=== PATIENT | male | born 1950 ===

== ENCOUNTER 2020-02-05 07:07 | Day surgery (SDC) | payer MEDICARE, OTHER ==
[~2020-02-05] VITALS: Wt 86.9 kg
[2020-02-05 07:34] VITALS: BP 146/76; PULSE 92; TEMP 98.5
[2020-02-05] MEDS ORDERED: TRELEGY ELLIPT1 EACH IH (07:56)
[2020-02-05] MEDS ORDERED: VENTOLIN0.09 MG (07:57)
[2020-02-05] MEDS ORDERED: HCTZ 25MG TAB25 MG PO (07:57)
[2020-02-05] MEDS ORDERED: ASPIRIN E.C. 8181 MG PO (07:57)
[2020-02-05 09:30] VITALS: BP 115/78; PULSE 79
--- NOTE | 2020-02-05 09:30 | NUR ---
PATIENT TRANSPORTED PER CART TO BAY 2 ACCOMPANIED BY THIS NURSE. MONITORS REAPPLIED. O2 AT 89-92% ON 4 LITERS. PATIENT CONTINUES WITH COUGHING SPELLS. BUT DENIES SHORTNESS OF BREATH OR DISCOMFORT. AT BEDSIDE. PATIENT REQUESTS APPLE JUICE.
[2020-02-05 09:45] VITALS: BP 125/74; PULSE 85; TEMP 98
--- NOTE | 2020-02-05 09:45 | NUR ---
VSS ON O2 AT 4 LITERS. PATIENT TALKING WITH . DECREASING COUGHING SPELLS. TAKING APPLE JUICE WITHOUT PROBLEMS. PATIENT DENIES SHORTNESS OF BREATH.
[2020-02-05 10:00] VITALS: BP 119/79; PULSE 86
--- NOTE | 2020-02-05 10:00 | NUR ---
VSS ON O2 AT 4 LITERS. PATIENT EATS MUFFIN AND CONTINUES DRINKING APPLE JUICE WITHOUT PROBLEMS. TALKS WITH AT BEDSIDE. OCCASIONAL COUGHING. DENIES SHORTNESS OF BREATH OR DISCOMFORT. O2 DECREASED TO 3 LITERS.
--- NOTE | 2020-02-05 10:10 | NUR ---
O2 AT 3 LITERS SAO2 MAINTAINING ABOVE 90%. DR REGALADO CALLED AND UPATED ON PATIENT STATUS. NO NEW ORDERS RECEIVED. REVIEWED PATIENT INSTRUCTIONS WITH DOCTOR ON O2 USAGE AT HOME.
[2020-02-05 10:15] VITALS: BP 112/71; PULSE 79
--- NOTE | 2020-02-05 10:15 | NUR ---
VSS ON 3 LITERS PER N/C. PATIENT DENIES SHORTNESS OF BREATH AND DISCOMFORT. TALKS WITH . 1025 IV DC'D WITH CATHETER TIP INTACT. PRESSURE AND BANDAGE APPLIED. 1030 DISCHARGE INSTRUCTIONS GIVEN VERBAL AND DISCHARGE PACKET GIVEN TO . QUESTIONS ANSWERED AND PATIENT AND VOICED UNDERSTANDING. PATIENT CHANGES INTO STREET CLOTHES. 1045 PATIENT DISCHARGED PER WHEEL CHAIR ACCOMPANIED BY NURSE TO PRIVATE VECHILE. DRIVES VECHILE.
[2020-02-05 11:13] VITALS: BP 118/79; PULSE 84
== END 2020-02-05 11:46 ==
LOC: SDCO 07:07
DX: C34.31 Malignant neoplasm of lower lobe, right bronchus or lung (principal); J98.11 Atelectasis; Z79.82 Long term (current) use of aspirin; G47.30 Sleep apnea, unspecified; I10 Essential (primary) hypertension; J44.9 Chronic obstructive pulmonary disease, unspecified; G47.33 Obstructive sleep apnea (adult) (pediatric); Z99.81 Dependence on supplemental oxygen; Z85.828 Personal history of other malignant neoplasm of skin
CPT/HCPCS: J2704; J7120